=== PATIENT | male | born 1975 | race Caucasian/White ===

== ENCOUNTER 2021-03-08 01:30 | Emergency (ER) | payer MEDICAID ==
[~2021-03-08] VITALS: Ht 172.7 cm; Wt 55.8 kg
[2021-03-08 01:41] VITALS: BP 111/71
--- NOTE | 2021-03-08 01:41 | NUR ---
TO BED AMBULATORY
--- NOTE | 2021-03-08 02:00 | NUR ---
Dr. Burt examining patient.
--- NOTE | 2021-03-08 02:05 | NUR ---
45/M BIB C/O LEFT LEG PAIN 07/10, FOR 6 DAYS. PT WAS SEEN LAST SUNDAY ON AND WAS GIVEN PRESCRIPTION OF ELIQUIS WHICH HE STARTED TAKING LAST SUNDAY. UPON INSEPECTION LEFT LEG WAS A LITTLE TENDER. PT DENIES ANY RECENT TRAUMA TO THE LEG. PMH: AKI NKDA
[2021-03-08] MEDS ORDERED: ACETAMINOPHEN EXTRA STRENGTH 500 MG TAB PO ONE (02:10)
[2021-03-08] MEDS ORDERED: IBUPROFEN 800 MG TAB PO ONE (02:10)
[2021-03-08] MEDS ORDERED: IBUP-2213 PO (02:33)
[2021-03-08] MEDS ORDERED: ACET-10509 PO (02:33)
[2021-03-08 02:48] VITALS: BP 111/71
--- NOTE | 2021-03-08 02:48 | NUR ---
Patient discharged with v/s stable. Written and verbal after care instructions given and explained. Patient alert, oriented and verbalized understanding of instructions. Ambulatory with steady gait. All questions addressed prior to discharge. ID band removed. Patient advised to follow up with PMD. Rx of IBUPROFEN, ACETAMINOPHEN given. Patient educated on indication of medication including possible reaction and side effects. Opportunity to ask questions provided and answered.
== END 2021-03-08 02:48 | disposition home or self-care (01) ==
LOC: MED 01:30
DX: I82.4Z2 Acute embolism and thrombosis of unspecified deep veins of left distal lower extremity (principal); E11.9 Type 2 diabetes mellitus without complications; Z79.899 Other long term (current) drug therapy
CPT/HCPCS: 99283

== ENCOUNTER 2024-01-10 22:44 | Emergency (ER) | payer MEDICAID ==
[~2024-01-10] VITALS: Ht 170.2 cm; Wt 65.4 kg
[~2024-01-10 22:44] MED LIST: ACET-10509 PO; IBUP-2213 PO
[2024-01-10 23:37] VITALS: BP 139/81; PULSE 84; RESP 18; TEMP 98.3; O2SAT 98
[2024-01-11] MEDS ORDERED: SULF-59 PO (02:14)
[2024-01-11] MEDS ORDERED: IBUP-2213 PO (02:14)
== END 2024-01-11 02:20 | disposition home or self-care (01) ==
LOC: MED 22:44
DX: L03.012 Cellulitis of left finger (principal); E11.9 Type 2 diabetes mellitus without complications; Z79.4 Long term (current) use of insulin; Z79.899 Other long term (current) drug therapy
CPT/HCPCS: 73130; 99283; Q0092